=== PATIENT | female | born 1970 | race Caucasian/White ===

== ENCOUNTER → 2017-10-28 | Outpatient (REF) ==
[~2017-10-28] MED LIST: BENTYL 10MG10 MG/CAP PO; MULTIVITAMIN FO1 CAP PO; NO HOME MEDICATIONS; PERCOCET 325 MG1 TA2 PO; PHENERGAN 25 TA25 MG PO; PHENERGAN25 MG RC
[2017-10-28 19:35] LABS: THYROID STIMULATING HORMONE 1.02 uIU/mL (0.465-4.680)
== END ==
LOC: ZLAB.WCH 18:42
PROVIDERS: Family Medicine
DX: Z01.89 Encounter for other specified special examinations (principal)

== ENCOUNTER → 2018-04-15 | Outpatient (CLI) | payer OTHER | LOC: COL.RAD 11:46 | DX: M51.34 Other intervertebral disc degeneration, thoracic region (principal); M41.84 Other forms of scoliosis, thoracic region; M47.816 Spondylosis without myelopathy or radiculopathy, lumbar region; M25.562 Pain in left knee; V89.2XXA Person injured in unspecified motor-vehicle accident, traffic, initial encounter ==

== ENCOUNTER → 2018-07-21 | Outpatient (RCR) | payer OTHER, MEDICAID | END | disposition home or self-care (01) | LOC: WSC | DX: M54.2 Cervicalgia (principal); M54.6 Pain in thoracic spine; M54.5 Low back pain; M25.562 Pain in left knee; M25.559 Pain in unspecified hip; V43.62XA Car passenger injured in collision with other type car in traffic accident, initial encounter ==

== ENCOUNTER 2018-07-24 08:05 | Outpatient (RCR) | payer MEDICAID | END 2018-10-22 | disposition home or self-care (01) | LOC: WSC | DX: M54.2 Cervicalgia (principal); M54.6 Pain in thoracic spine; M54.5 Low back pain; M25.559 Pain in unspecified hip; M25.562 Pain in left knee; V43.92XD Unspecified car occupant injured in collision with other type car in traffic accident, subsequent encounter ==

== ENCOUNTER → 2018-07-30 | Outpatient (CLI) | payer OTHER | LOC: COL.RAD 14:28 | DX: M54.6 Pain in thoracic spine (principal); R07.81 Pleurodynia ==

== ENCOUNTER 2018-09-26 19:12 | Emergency (ER) | payer MEDICAID ==
[~2018-09-26] VITALS: Ht 170.2 cm; Wt 113.6 kg
[2018-09-26 19:17] VITALS: TEMP 97.5
[2018-09-26 19:44] LABS: BASO # 0.1 (0.0-0.2); BASO % 0.5 % (0.0-2.0); EOS # 0.1 (0.0-0.7); EOS % 0.8 % (0-4.0); GRAN # 7.6 (1.4-6.5); GRAN % 69.6 % (42.2-75.2); HEMATOCRIT 39.6 % (37.0-47.0); LYMPH # 2.3 (1.2-3.4); LYMPH % 21.2 % (20.0-51.0); MEAN CELL VOLUME 91 fl (80.0-100.0); MEAN CORPUSCULAR HEMOGLOBIN 30 pg (27.0-31.0); MEAN CORPUSCULAR HGB CONC 33 g/dl (33.0-37.0); MEAN PLATELET VOLUME 9.6 fl (7.4-10.4); MONO # 0.8 (0.1-0.6); PLATELET COUNT 260 K/mm3 (130-400); RED BLOOD COUNT 4.36 M/mm3 (4.10-5.30); REDCELL DISTRIBUTION WIDTH-CV 12.6 % (11.5-14.5)
[2018-09-26 19:50] LABS: PROTHROMBIN TIME 11.9 SECONDS (9.7-12.8)
[2018-09-26 20:31] LABS: ALANINE AMINOTRANSFERASE 17 U/L (9-52); ALBUMIN 3.9 gm/dL (3.5-5.0); ALKALINE PHOSPHATASE 78 U/L (50-136); ANION GAP 8 mmol/L (7-16); AST,SGOT 18 U/L (15-37); BILIRUBIN,TOTAL 0.3 mg/dL (0.0-1.0); BLOOD UREA NITROGEN 13 mg/dL (7-17); CALCIUM 9.5 mg/dL (8.4-10.2); CARBON DIOXIDE 27 mmol/L (22-30); CHLORIDE 101 mmol/L (98-107); CREATININE, serum 0.86 mg/dL (0.52-1.25); GLUCOSE 99 mg/dL (74-106); POTASSIUM 3.8 mmol/L (3.4-5.0); SODIUM 136 mmol/L (137-145); TOTAL PROTEIN 6.7 gm/dL (6.4-8.2)
[2018-09-26 20:45] LABS: TROPONIN-I < 0.012 ng/mL (0.000-0.035)
[2018-09-26 20:59] LABS: TSH w REFLEX 0.916 uIU/mL (0.465-4.680)
[2018-09-26 21:43] VITALS: BP 121/71; PULSE 80
== END 2018-09-26 21:56 | disposition home or self-care (01) ==
LOC: COL.ER 19:12
PROVIDERS: Emergency Medicine
DX: R00.2 Palpitations (principal); Z98.51 Tubal ligation status; Z90.89 Acquired absence of other organs

== ENCOUNTER → 2018-11-25 | Outpatient (CLI) | payer OTHER | LOC: MHCPAIN 12:22 | DX: G89.29 Other chronic pain (principal); M47.814 Spondylosis without myelopathy or radiculopathy, thoracic region | CPT/HCPCS: G0463 ==

== ENCOUNTER → 2018-11-26 | Outpatient (CLI) | payer OTHER | LOC: MHCPAIN 13:05 | DX: M47.814 Spondylosis without myelopathy or radiculopathy, thoracic region (principal); M54.14 Radiculopathy, thoracic region ==

== ENCOUNTER → 2018-12-01 | Outpatient (CLI) | payer OTHER | LOC: MHCPAIN 09:44 | DX: G89.29 Other chronic pain (principal); M47.814 Spondylosis without myelopathy or radiculopathy, thoracic region | CPT/HCPCS: G0463 ==

== ENCOUNTER → 2019-03-12 | Outpatient (CLI) | payer OTHER, MEDICAID | LOC: COL.RAD 08:23 | DX: M25.551 Pain in right hip (principal) | CPT/HCPCS: J3301; Q9967 ==

== ENCOUNTER → 2019-08-26 | Outpatient (CLI) | payer OTHER, MEDICAID | LOC: COL.RAD 10:30 | DX: M79.2 Neuralgia and neuritis, unspecified (principal) ==

== ENCOUNTER → 2019-11-03 | Outpatient (CLI) | payer MEDICAID | LOC: COL.RAD 12:28 | DX: S73.101A Unspecified sprain of right hip, initial encounter (principal); M25.751 Osteophyte, right hip; M89.38 Hypertrophy of bone, other site | CPT/HCPCS: A9585; Q9967 ==